=== PATIENT | male | born 1975 | race Caucasian/White ===

== ENCOUNTER 2016-06-28 21:40 | Emergency (ER) ==
[2016-06-28 21:53] VITALS: BP 109/80; TEMP 99.2; BMI 25.0
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
[2016-06-28] MEDS ORDERED: [UNRECOGNIZED DRUG - OTHER] IM STA (22:09)
[2016-06-28] MEDS ORDERED: HEPATITIS B IMMUNE GLOBULIN IM STA (22:09)
[2016-06-28 22:52] LABS: ALBUMIN 4.4 g/dL (3.4-5.0); ALBUMIN/GLOBULIN RATIO 1.33; ANION GAP 13.9; BILIRUBIN,TOTAL 0.5 mg/dL (0.00-1.20); BUN/CREATININE RATIO 14.77; CALCIUM 9.5 mg/dL (8.2-10.2); CREATININE 0.88 mg/dL (0.60-1.10); POTASSIUM 3.9 mmol/L (3.5-5.1); TOTAL PROTEIN 7.7 g/dL (6.4-8.2)
[2016-06-28 22:56] LABS: HIV INTERNAL QC INTERNAL QC VALID; HIV-1 p24 ANTIGEN SCREEN NEGATIVE (NEGATIVE); HIV-1/2 ANTIBODY SCREEN NEGATIVE (NEGATIVE)
[2016-06-30 07:23] LABS: HEPATITIS A ANTIBODY TOTAL Negative (Negative); HEPATITIS B CORE ANTIBODY Negative (Negative)
[2016-07-03 09:24] LABS: RAPID PLASMA REAGIN Non Reactive (Non Reactive)
== END 2016-06-28 22:50 | disposition home or self-care (01) ==
LOC: ED 21:40
DX: Z77.21 Contact with and (suspected) exposure to potentially hazardous body fluids (principal); S61.032A Puncture wound without foreign body of left thumb without damage to nail, initial encounter; W26.8XXA Contact with other sharp object(s), not elsewhere classified, initial encounter; Y99.0 Civilian activity done for income or pay
CPT/HCPCS: 36415; 80053; 80074; 86592; 86704; 86705; 86707; 86708; 86709; 87340; 87350; 90471; 99283